=== PATIENT | female | born 1950 | race Caucasian/White ===

== ENCOUNTER 2023-08-13 05:06 | Observation (INO) | payer MEDICARE, OTHER, SELFPAY ==
[2023-08-13] VITALS (9 sets, daily range): BP systolic 104–137; BP diastolic 46–82; PULSE 68–81; BMI 24.3; BMI 23.7
--- NOTE | 2023-08-13 00:22 | ED.GENMED ---
History of Present Illness
<SANDRA Granado - Last Filed: 08/13/23 06:13>
General
Chief Complaint: Chest Pain
Source: patient
Time Seen by Provider: 08/13/23 00:19
Travel History
Have you had any contact with someone who has COVID-19?: No
Do you have any symptoms of coronavirus? Fever > 100 degrees, chills, cough, shortness of breath, sore throat, loss of taste or smell, muscle aches, or headache?: No
History of Present Illness
History of Present Illness:
This is a 73 yo female PMH R breast CA and migraines presenting for L sided chest pain which started at 1700 yesterday evening while she was on a walk. She states the pain has persisted at rest and is worse with deep inspiration. She rates the pain
as sharp 7/10 and radiating to her L thoracic region. She took an excedrin before arriving to the ED. She denies history of chest pain.
She denies nausea, vomiting, diaphoresis, EVANS.
Recent travel history: Recent road trip to [place], no flights
On physical exam, patient in visible discomfort when asked to take a deep breath.
Review of Systems
<SANDRA Granado - Last Filed: 08/13/23 06:13>
Review of Systems
Allergies reviewed?: Yes
Constitutional: Reports no symptoms
EENT: Reports no symptoms
Respiratory: Reports no symptoms
Cardiac: Reports chest pain
ABD/GI: Reports no symptoms
Phy Exam
<SANDRA Granado - Last Filed: 08/13/23 06:13>
General Physical Exam
General Presentation: well appearing
General age: appears stated age
General Skin: warm and dry
Cardiovascular Exam
Cardiovascular Exam: regular rate/rhythm, no edema, no gallop and no murmur
Pulmonary Exam
Pulmonary Exam: lungs clear and no respiratory distress
Neurological Exam
Neurological Exam: alert and oriented x3
Musculoskeletal Exam
Musculoskeletal Exam: full ROM
Scores
<SANDRA Granado - Last Filed: 08/13/23 06:13>
Heart Score for Chest Pain Patients
STEMI patient?: No
History: Slightly or Non-Suspicious
ECG: Normal
Age: >/= 65 years
Risk Factors: 1 or 2 Risk Factors
Troponin: </= Normal Limit
Heart Score for Chest Pain Patients: 3
Heart Score Risk: 2.5% MACE over next 6 weeks
Course
<SANDRA Granado - Last Filed: 08/13/23 06:13>
Orders/Labs/Results
Orders:
Orders
08/12/23 23:59
Cardiac Monitoring- Treatment ONCE
EKG- Treatment ONCE
IV Insert/Care/Rem.- Treatment PRN
Complete Blood Count/With Diff Urgent
Comprehensive Metabolic Panel Urgent
Troponin I Urgent
O2 Therapy [RESP] Urgent
Titrate/Wean O2 to maintain O2 sat greater than (%): 90
Special Instructions: Maintain sats >/=90%
Pulse Ox/spot Check [RESP] Urgent
Quantity: 1
Special Instructions: ON ROOM AIR
08/13/23 00:34
Lipase Urgent
08/13/23 01:35
0.9% Sodium Chloride 500 ml [Nss] 500 ml IV BOLUS
08/13/23 02:07
D-Dimer Urgent
08/13/23 03:50
Ketorolac [Toradol] 15 mg IV NOW STA
08/13/23 03:51
Enoxaparin Sodium [Lovenox] 70 mg SC NOW STA
CXR2 [CR Chest - 2 Views ] Urgent
Comment:
Reason For Exam: Chest Pain
08/13/23 04:00
Flush (0.9% Sodium Chloride) [Flush (Nss)] See Dose Instructions IV PER PROTOCOL
08/13/23 04:08
Admit/Transfer Patient As Directed
Co-Sign Provider:
Level of Care: Observation services
Assign to:: Telemetry
Physician / Group: Lexx
Diagnosis: Pleurisy
Reason for Telemetry: Chest Pain syndromes
Date to Stop Telemetry: 08/15/23
Time to Stop Telemetry: 11:00
08/13/23 04:09
Code Status As Directed
Resuscitation Status: Full Code
08/13/23 04:11
US Periph Venous LOWER Ext Brodie Urgent
Comment:
Reason For Exam: Chest Pain, Rule out DVT
08/13/23 06:06
Troponin I Q6H
Acetaminophen [Tylenol] 650 mg PO Q4HPRN PRN
HYDROmorphone [Dilaudid] 0.5 mg IV Q4HPRN PRN
Ketorolac [Toradol] 10 mg IV Q6HPRN PRN
Ondansetron Injectable [Zofran] 4 mg IV Q6HPRN PRN
Polyethylene Glycol Powder [Miralax] 17 grams PO DAILY PRN
08/13/23 06:06
CRP [C-Reactive Protein] Routine
ESR [Erythrocyte Sed Rate] Routine
VQ Scan [NM Lung Scan Vent/perf ] Routine
Comment:
Reason For Exam: Pleuritic Pain, Elevated D-Dimer
Activity As Directed
Activity Level: Ambulate
With Assistance
EKG with chest pain [ECG as needed] As Directed
ECG as needed for:: Chest Pain
I/O [Intake/ Output] As Directed
Frequency: Per unit guidelines
Orthostatic Vital Signs As Directed
Orthostatic VS Frequency: BID
Vital Signs As Directed
Frequency: Per unit guidelines
Weight As Directed
Frequency: Daily
Oxygen Therapy [O2 Therapy] [RESP] Routine
Titrate/Wean O2 to maintain O2 sat greater than (%): 94
Rx Incentive Spirometry [RESP] Routine
Frequency: q1h while awake
08/13/23 08:00
Pantoprazole [Protonix IV] 40 mg IV DAILY
Paroxetine [Paxil] 20 mg PO DAILY
08/13/23 12:06
Troponin I Q6H
08/13/23 18:06
Troponin I Q6H
08/13/23 22:00
simvastatin 40 mg PO HS
08/14/23 06:00
EKG [Electrocardiogram (*1)] IN AM
Reason for Study: Chest Pain
Regular
At Your Request: Full Participation
Basic Metabolic Panel IN AM
Complete Blood Count/No Diff IN AM
08/15/23 11:00
DC Protocol for Telemetry ONCE
Abnormal Lab Results
08/13/23 08/13/23
00:34 02:07
RBC 3.65 L 10^6/uL
(4.20-5.40)
Hgb 11.7 L g/dL
(12.0-16.0)
Hct 35.4 L %
(37.0-47.0)
MCH 32.1 H pg
(27.0-31.0)
Absolute Monos (auto) 1.2 H 10^3/uL
(0.1-0.6)
Lymphocytes % 17.7 L %
(20.5-51.1)
Monocytes % 12.6 H %
(1.7-9.3)
D-Dimer 0.91 H ug/mlFEU
(0.00-0.50)
BUN 26 H mg/dl
(7-17)
Glucose 116 H mg/dl
(70-99)
08/13/23 00:34
08/13/23 00:34
Vital Signs
Initial and Last Documented VS:
Initial Vital Signs
Temp Pulse Resp BP Pulse Ox
98.2 F 90 18 113/82 94
08/13/23 00:01 08/13/23 00:01 08/13/23 00:01 08/13/23 00:01 08/13/23 00:01
Last Documented Vital Signs
Temp Pulse Resp BP Pulse Ox
98.4 F 75 20 137/52 96
08/13/23 06:00 08/13/23 06:00 08/13/23 06:00 08/13/23 06:00 08/13/23 06:00
<Meño Ortiz, - Last Filed: 08/13/23 03:51>
Orders/Labs/Results
Orders:
Orders
08/12/23 23:59
Cardiac Monitoring- Treatment ONCE
EKG- Treatment ONCE
IV Insert/Care/Rem.- Treatment PRN
Complete Blood Count/With Diff Urgent
Comprehensive Metabolic Panel Urgent
Troponin I Urgent
O2 Therapy [RESP] Urgent
Titrate/Wean O2 to maintain O2 sat greater than (%): 90
Special Instructions: Maintain sats >/=90%
Pulse Ox/spot Check [RESP] Urgent
Quantity: 1
Special Instructions: ON ROOM AIR
08/13/23 00:34
Lipase Urgent
08/13/23 01:35
0.9% Sodium Chloride 500 ml [Nss] 500 ml IV BOLUS
08/13/23 02:07
D-Dimer Urgent
08/13/23 03:50
Ketorolac [Toradol] 15 mg IV NOW STA
08/13/23 03:51
Enoxaparin Sodium [Lovenox] 70 mg SC NOW STA
CXR2 [CR Chest - 2 Views ] Urgent
Comment:
Reason For Exam: Chest Pain
08/13/23 04:00
Flush (0.9% Sodium Chloride) [Flush (Nss)] See Dose Instructions IV PER PROTOCOL
08/13/23 04:08
Admit/Transfer Patient As Directed
Co-Sign Provider:
Level of Care: Observation services
Assign to:: Telemetry
Physician / Group: Lexx
Diagnosis: Pleurisy
Reason for Telemetry: Chest Pain syndromes
Date to Stop Telemetry: 08/15/23
Time to Stop Telemetry: 11:00
08/13/23 04:09
Code Status As Directed
Resuscitation Status: Full Code
08/13/23 04:11
US Periph Venous LOWER Ext Brodie Urgent
Comment:
Reason For Exam: Chest Pain, Rule out DVT
08/13/23 06:06
Troponin I Q6H
Acetaminophen [Tylenol] 650 mg PO Q4HPRN PRN
HYDROmorphone [Dilaudid] 0.5 mg IV Q4HPRN PRN
Ketorolac [Toradol] 10 mg IV Q6HPRN PRN
Ondansetron Injectable [Zofran] 4 mg IV Q6HPRN PRN
Polyethylene Glycol Powder [Miralax] 17 grams PO DAILY PRN
08/13/23 06:06
CRP [C-Reactive Protein] Routine
ESR [Erythrocyte Sed Rate] Routine
VQ Scan [NM Lung Scan Vent/perf ] Routine
Comment:
Reason For Exam: Pleuritic Pain, Elevated D-Dimer
Activity As Directed
Activity Level: Ambulate
With Assistance
EKG with chest pain [ECG as needed] As Directed
ECG as needed for:: Chest Pain
I/O [Intake/ Output] As Directed
Frequency: Per unit guidelines
Orthostatic Vital Signs As Directed
Orthostatic VS Frequency: BID
Vital Signs As Directed
Frequency: Per unit guidelines
Weight As Directed
Frequency: Daily
Oxygen Therapy [O2 Therapy] [RESP] Routine
Titrate/Wean O2 to maintain O2 sat greater than (%): 94
Rx Incentive Spirometry [RESP] Routine
Frequency: q1h while awake
08/13/23 08:00
Pantoprazole [Protonix IV] 40 mg IV DAILY
Paroxetine [Paxil] 20 mg PO DAILY
08/13/23 12:06
Troponin I Q6H
08/13/23 18:06
Troponin I Q6H
08/13/23 22:00
simvastatin 40 mg PO HS
08/14/23 06:00
EKG [Electrocardiogram (*1)] IN AM
Reason for Study: Chest Pain
Regular
At Your Request: Full Participation
Basic Metabolic Panel IN AM
Complete Blood Count/No Diff IN AM
08/15/23 11:00
DC Protocol for Telemetry ONCE
Abnormal Lab Results
08/13/23 08/13/23
00:34 02:07
RBC 3.65 L 10^6/uL
(4.20-5.40)
Hgb 11.7 L g/dL
(12.0-16.0)
Hct 35.4 L %
(37.0-47.0)
MCH 32.1 H pg
(27.0-31.0)
Absolute Monos (auto) 1.2 H 10^3/uL
(0.1-0.6)
Lymphocytes % 17.7 L %
(20.5-51.1)
Monocytes % 12.6 H %
(1.7-9.3)
D-Dimer 0.91 H ug/mlFEU
(0.00-0.50)
BUN 26 H mg/dl
(7-17)
Glucose 116 H mg/dl
(70-99)
08/13/23 00:34
08/13/23 00:34
Vital Signs
Initial and Last Documented VS:
Initial Vital Signs
Temp Pulse Resp BP Pulse Ox
98.2 F 90 18 113/82 94
08/13/23 00:01 08/13/23 00:01 08/13/23 00:01 08/13/23 00:01 08/13/23 00:01
Last Documented Vital Signs
Temp Pulse Resp BP Pulse Ox
98.4 F 75 20 137/52 96
08/13/23 06:00 08/13/23 06:00 08/13/23 06:00 08/13/23 06:00 08/13/23 06:00
<SANDRA Granado - Last Filed: 08/13/23 06:13>
MDM/Problems Addressed
Differential Diagnosis Includes:
Pulmonary embolism
Unstable Angina
MDM/Problems Addressed:
Troponin WNL, D Dimer Elevated.
-Patient is having pleuritic chest pain with an elevated D dimer. She is allergic to IV contrast so will be admitted for V/Q scan
<SANDRA Granado - Last Filed: 08/13/23 06:13>
*Critical Care Note
Total Time (30-74mins, 75-104mins- exclusive of procedures): Not Applicable
ED Attending Note
<SANDRA Granado - Last Filed: 08/13/23 06:13>
-
Portions of this chart may have been created with voice recognition software.� Occasional wrong word or��sound alike� substitutions may have occurred due to the inherent limitations of voice recognition software.
<Meño Ortiz DO - Last Filed: 08/13/23 03:51>
ED Attending Note
Patient seen and examined by attending physician: Yes
I performed the substantive portion of visit, reviewed & personally made and approve the management plan that is documented in note by myself or CECY.: Yes
ED Attending Note:
Pleasant 73-year-old female presents with right-sided chest pain that began suddenly while out on a walk. Patient states that the pain is worsened with deep inspiration. She states that the pain is 7 out of 10 and radiates to her back. Patient
did take Excedrin prior to arrival. Reports no other symptoms. Denies any calf tenderness. Patient was seen in conjunction with the PA student. I have reviewed and agree with the history and treatment plan presented. On my independent physical
exam, patient is awake, alert, and oriented x3 minimal acute distress, except when having deep inspiration. Deep breaths exacerbate his symptoms. No reproducible chest pain. Negative Homans' sign. Skin is warm and dry.
Plan CT of the chest to rule out pulmonary embolus.
Discharge Plan
Departure
Patient Disposition: Admit
Date of Disposition: 08/13/23
Time of Disposition: 03:50
Admit to: Med/Surg
Presentation/result/management discussed w/ accepting MD/DO: Hospitalist
Discharge Problem:
Chest pain, SOB (shortness of breath), D-dimer, elevated, History of breast cancer
Interventions
Interventions:
*Risk Screen - Suicide Last Done: 08/13/23 00:01
*General Assessment Last Done: 08/13/23 00:01
*Neglect/Abuse Screening Last Done: 08/13/23 00:01
ED- Fall Risk Assessment Last Done: 08/13/23 00:37
*ED COVID-19 Vaccine History Last Done: 08/13/23 00:37
*Nursing Disposition Last Done: 08/13/23 05:45
ED- Cardiac Assessment Last Done: 08/13/23 00:37
Discharge Date and Time
Discharge Date/Time: 08/13/23 05:45
[2023-08-13 00:46] LABS: % Basophils 0.5 % (0-2); % Eosinophils 1.1 % (0-6); % Immature Granulocytes 0.3 % (0-0.5); % Lymphocytes 17.7 % (20.5-51.1); % Monocytes 12.6 % (1.7-9.3); % Neutrophils 67.8 % (42.2-75.2); Absolute Basophils 0.1 10^3/uL (0-0.2); Absolute Eosinophils 0.1 10^3/uL (0-0.7); Absolute Lymphocytes 1.6 10^3/uL (1.2-3.4); Absolute Monocytes 1.2 10^3/uL (0.1-0.6); Absolute Neutrophils 6.2 10^3/uL (1.4-6.5); Hematocrit 35.4 % (37.0-47.0); Hemoglobin 11.7 g/dL (12.0-16.0); Mean Corp Hgb Conc. 33.1 g/dL (33.0-37.0); Mean Corpuscular Hgb 32.1 pg (27.0-31.0); Mean Platelet Volume 10.3 fL (7.4-10.4); Nucleated Red Blood Cells % 0 %; Platelet Count 188 10^3/uL (130-400); Red Blood Cell Count 3.65 10^6/uL (4.20-5.40); White Blood Cell Count 9.1 10^3/uL (4.8-10.8)
[2023-08-13 01:07] LABS: Troponin I < 0.012 ng/ml
[2023-08-13 01:17] LABS: ALT (SGPT) 28 U/L (0-35); AST (SGOT) 36 U/L (14-36); Albumin 4.6 g/dl (3.5-5.0); Alkaline Phosphatase 102 U/L (38-126); Blood Urea Nitrogen 26 mg/dl (7-17); Calcium 9.7 mg/dl (8.4-10.2); Carbon Dioxide 30 mmol/L (22-30); Chloride 100 mmol/L (98-107); Estimated Creatinine Clearance 48 ml/min; Glucose 116 mg/dl (70-99); Lipase 71 U/L (23-300); Sodium 136 mmol/L (135-145); Total Bilirubin 0.7 mg/dl (0.2-1.3); Total Protein 7.2 g/dl (6.3-8.2); eGFR 59.12
[2023-08-13] MEDS: NSS 500 IV (01:38)
[2023-08-13 02:30] LABS: D-Dimer 0.91 ug/mlFEU (0.00-0.50)
--- NOTE | 2023-08-13 03:54 | HPS.HSE ---
Family Physician
-
Family Physician: SEBASTIAN Salinas
Chief Complaint
-
Chest Pain
History of Present Illness
Patient is a 73y F with PMH significant for breast cancer who presents to ED complaining of left sided chest pain. Patient states that she has been feeling very well recently. She denies any fevers, chills, cough, GI or complaints. She went
for her usual walk this afternoon, but felt somewhat short of breath and so cut her walk short. Upon return home, she noted development of sudden, sharp pain in the L lower chest. Pain located beneath the breast / over the ribs. Occasional
radiation into the L flank area. Pain is worse with breathing, movement, etc. Pain was quite severe and seemed to steadily increase and patient was brought to the ED for further evaluation.
Patient denies any prior history of similar symptoms. No recent sick contacts.
She did recently drive to [place] and back. No other travel. No prior history of DVT / PE.
In the ED, patient is in evident discomfort.
Medical History
Past Medical History
Past Medical History: Reports Other
Additional Past Medical History:
Right Breast Cancer
Anxiety / Depression
Dyslipidemia
Past Surgical History: Reports Other
Additional Past Surgical History:
Right Mastectomy
x 2
RLE Vein Stripping
Social History
Tobacco: Former Smoker (Quit smoking 15 years ago. > 40 pack years total use.)
Alcohol: Daily (1 glass wine daily.)
Drug: None
Personal:
Living: With Family
Family History
Family History: Other (Father: CAD, Seizures Mother: CVA MGM: Breast Cancer)
Allergies / Home Medications
Allergies reflects when Allergies were last updated in [facility].
Home Medications with original date entered in [facility]
Allergy/Medication List:
Allergies
Allergy/AdvReac Type Severity Reaction Status Date / Time
clams Allergy Anaphylaxis Verified 08/13/23 00:13
Sulfa (Sulfonamide Allergy Anaphylaxis Verified 08/13/23 00:18
Antibiotics)
iv dye Allergy Anaphylaxis Uncoded 08/13/23 00:18
Home Medications
paroxetine HCl 20 mg tablet 20 mg PO DAILY 08/13/23
simvastatin 40 mg tablet 40 mg PO HS 08/13/23
Review of Systems
-
History Source: Patient
A 12 point ROS was completed and negative except as noted: Yes
Constitutional: Denies Fever or Chills
EENT: Denies Sore Throat
Respiratory: Reports Trouble Breathing; Denies Cough or Hemoptysis
Cardiac: Reports Chest Pain; Denies Diaphoresis, Palpitations or Syncope
Abdomen/GI: Denies Abdominal Pain, Nausea, Vomiting, Diarrhea, Bloody Stools or Black Stools
: Denies Dysuria or Frequency
Musculoskeletal: Denies Edema
Neurological: Denies Dizzy or Headache
Psych: Denies Depression or Anxiety
Physical Exam
Vital Signs
Vital Signs
Temp Pulse Resp BP Pulse Ox
98.2 F 82 26 123/59 95
08/13/23 00:01 08/13/23 02:30 08/13/23 02:30 08/13/23 01:00 08/13/23 02:30
Physical Exam
General: Other (73y F in moderate distress due to pain.)
HEENT: Moist mucous membranes and PERRLA
Respiratory: Other (Decreased BS at bases - mostly due to diminished effort due to pain. No W/R/R.)
Cardiac: S1/S2 and Regular Rhythm; No Murmur
GI: Soft, Non Tender, Non Distended and Normal Bowel Sounds
Musculoskeletal: No Clubbing, No Cyanosis and No Edema
Neuro: AO x 3
Laboratory Results
-
08/13/23 00:34
08/13/23 00:34
Laboratory Results
Total Bilirubin 0.7 mg/dl (0.2-1.3) 08/13/23 00:34
AST 36 U/L (14-36) 08/13/23 00:34
ALT 28 U/L (0-35) 08/13/23 00:34
Alkaline Phosphatase 102 U/L (38-126) 08/13/23 00:34
Troponin I < 0.012 ng/ml 08/13/23 00:34
Lipase 71 U/L (23-300) 08/13/23 00:34
Impression/Plan
-
A/P: Patient is a 73y F with PMH significant for breast cancer s/p treatment who presents to ED complaining of L chest pain.
Pleuritic Pain
SOB
- Admit of further evaluation and treatment.
- Patient with evident pleuritic chest pain and in significant discomfort in the ED.
- Initial evaluation for coronary ischemia is unremarkable with normal EKG and undetectable troponin.
- Differential includes PE / pulmonary infarct, viral or inflammatory pleurisy.
- No symptoms to suggest infectious etiology.
- No abdominal tenderness to suggest LUQ / splenic etiology.
- D-Dimer is modestly elevated and patient with h/o breast CA.
- Was on hormonal agent (Aromasin) but has been off of this for 1 year now.
- Unable to get CTA due to significant IV dye allergy.
- Will give Lovenox x 1 therapeutic dose now. V/Q scan in the AM. Check LE dopplers.
- Pain control.
- Check CXR.
- Further evaluation depending on results of above studies, clinical course, etc.
Dyslipidemia
- Stable. Continue statin.
Anxiety
- Stable. Continue paroxetine.
DVT Prophylaxis: On therapeutic Lovenox for now.
Code Status: Full
[2023-08-13] MEDS: TORADOL 15 MG IV (04:13)
[2023-08-13] MEDS: LOVENOX 70 MG SC (04:14)
[2023-08-13] MEDS: FLUSH (NSS) 1 FLUSH IV (04:14)
--- NOTE | 2023-08-13 05:48 | PTCARENOTE ---
Pt received from ED to rm 430. Pt oriented to room and call mir.
[2023-08-13 07:09] LABS: Troponin I < 0.012 ng/ml
[2023-08-13] MEDS: PAXIL 20 MG PO (08:09)
[2023-08-13] MEDS: PROTONIX IV 40 MG IV (08:09)
[2023-08-13] MEDS: NSS (PRESERVATIVE FREE) 10 ML IV (08:09)
[2023-08-13 08:17] LABS: Erythrocyte Sed Rate 13 mm/hour (0-20)
[2023-08-13 13:02] LABS: Troponin I < 0.012 ng/ml
--- NOTE | 2023-08-13 14:30 | CM ---
Patient was admitted under OBS, [facility] letter completed and placed on chart. Patient lives with spouse in a multilevel home, patient is independent with adl's and ambulation, no dme. Patient has a prescription plan and patient uses [facility] pharmacy.
SUSTAINABILITY EXECUTIVE DIRECTOR: Bree Tsai
Plan; Home with spouse when stable, no needs.
--- NOTE | 2023-08-13 17:28 | W.PN.HOSP.TC ---
Today's Communication/Plan
-
All discussed with the patient and the family
Discussed with the nurse and
Assessment / Plan
Assessment / Plan
Physical exam:
General: Awake, alert and oriented x3, not in distress and holds appropriate conversation.
HEENT: No active discharge, ecchymosis or bruising, moist lips, tongue and mucous membrane.
Eyes: No discharge or red conjunctiva, no nystagmus, pupils are reactive and equal
Neck:Supple, no JVD no bruit no goiter.
Respiratory: Normal AP contour and diameter, normal chest wall movement, normal respiratory effort, no respiratory distress,
Lungs: Good air entry bilaterally, no wheezing or rhonchi, no rales or crackles
Heart: S1, S2 regular, normal rate, no added sound.
Gastrointestinal: Positive bowel sounds, soft, nontender, no guarding or rigidity or organomegaly
Musculoskeletal: , no chest wall abnormality or tenderness. All joints and extremities have good range of motion, no muscle tenderness or any joint swelling or tenderness.
Extremities: No pitting edema, good peripheral pulses, good range of motion
Skin: Warm and dry, no ulceration, normal color.
Neurological: Awake, alert and oriented x3, speech clear and comprehensive, good muscle tone, normal sensory and motor function
Psychiatric: Normal mood, normal thought and judgment, normal affect,
Assessment and plan:A/P: Patient is a 73y F with PMH significant for breast cancer s/p treatment who presents to ED complaining of L chest pain.
Pleuritic chest pain
SOB
-VQ scan and lower extremity ultrasound was negative for PE In nature responded to Toradol, positive family history of the cardiac disease and meant dyslipidemia and former smoker, coronary artery disease may need to be consideration about a cardiac
workup and she like to be seen by cardiology.
Cardiology consulted and they do not think this is cardiac but they want to get an echo tomorrow prior to discharge.
Close monitor.
Dyslipidemia
- Stable. Continue statin.
Anxiety
- Stable. Continue paroxetine.
DVT Prophylaxis: On therapeutic Lovenox for now.
Code Status: Full
Anticipated Discharge: Within 24 hours
Subjective/Interval History
-
Date of Service: August 13, 2023
Seen and examined, awake and alert, family member at the bedside and was okay to talk to her and for the family member, feels chest pain is better now is more pressure in the central located still producible with taking a deep breath and cough, VQ
scan and lower extremity ultrasound negative for DVT, she likes to be seen by cardiology prior to discharge.
Objective Data
-
Vital Signs:
Vital Signs
Temp Pulse Resp BP Pulse Ox
98.5 F 69 14 125/57 95
08/13/23 16:00 08/13/23 16:00 08/13/23 16:00 08/13/23 16:00 08/13/23 16:00
Review of Systems
-
All other systems: Reviewed and negative
[2023-08-13 18:46] LABS: Troponin I < 0.012 ng/ml
[2023-08-13] MEDS: LIPITOR 20 MG PO (20:01)
--- NOTE | 2023-08-13 21:59 | CON.CAR ---
Consultation
Consultation Request
Date/Time Consultation Requested: 08/13/23 15:00
Date/Time Consultation Performed: 08/13/23 15 : 30
Requesting Provider: Russel
Performing Provider: Diane
Reason for Consultation: chest pain
Medical History
-
Chief Complaint: chest pain, shortness of breath
History of Present Illness:
Cait has a history of breast cancer and migraines. She presents with chest pain and shortness of breath. The pain was worse with taking a deep breath. Pain was described as sharp. It lasted for several hours and was on the relieved with Toradol.
She also noted shortness of breath while walking. She undergone a normal workup including low probability VQ scan with normal troponins and normal ECG.
Past Medical History
Past Medical History: Hypercholesterolemia and Other ( History of breast cancer, migraines, anxiety/depression)
Past Surgical History: Other ( right mastectomy, x2, right lower extremity vein stripping)
Social History
Tobacco: Former Smoker ( quit 15 years ago with greater than 40 pack years total use)
Alcohol: Occasional
Drug: None
Personal:
Living: With Family
Employment: Retired
Family History
Family History: Other ( father had CAD and seizures, mother with CVA)
Allergies / Home Medications
Allergy/AdvReac Type Severity Reaction Status Date / Time
clams Allergy Anaphylaxis Verified 08/13/23 00:13
Sulfa (Sulfonamide Allergy Anaphylaxis Verified 08/13/23 00:18
Antibiotics)
iv dye Allergy Anaphylaxis Uncoded 08/13/23 00:18
�Medication �Instructions �Recorded �Confirmed �Type
calcium carbonate (Calcium 600) 1,200 mg PO DAILY Supplement 08/13/23 08/13/23 History
cholecalciferol (vitamin D3) 50 50 mcg PO DAILY Supplement 08/13/23 08/13/23 History
mcg (2,000 unit) tablet (Vitamin
D3)
multivitamin with minerals-folic 1 tab PO DAILY Supplement 08/13/23 08/13/23 History
acid 80 mcg chewable tablet
(Centrum Adult 50 Plus)
paroxetine HCl 20 mg tablet 20 mg PO DAILY depression/anxiety 08/13/23 08/13/23 History
simvastatin 40 mg tablet 40 mg PO HS High Cholesterol 08/13/23 08/13/23 History
Review of Systems
-
History Source: Patient
All other systems: Negative unless noted
Constitutional: No Symptoms
EENT: No Symptoms
Respiratory: Trouble Breathing
Cardiac: Chest Pain
Abdomen/GI: No Symptoms
: No Symptoms
Musculoskeletal: No Symptoms
Skin: No Symptoms
Neurological: No Symptoms
Endocrine: No Symptoms
Hematologic/Lymphatic: No Symptoms
Physical Exam
Vital Signs
Temp Pulse Resp BP Pulse Ox
98.1 F 69 18 104/46 97
08/13/23 19:50 08/13/23 19:50 08/13/23 19:50 08/13/23 19:50 08/13/23 19:50
Lab Results
08/13/23 00:34
08/13/23 00:34
Troponin I < 0.012 ng/ml 08/13/23 18:17
General: Well developed, well nourished in NAD.
Neck: Supple, no JVD, HJR, carotids +2 B/L, no bruits bilaterally.
Heart: Non displaced PMI, RRR, no murmurs, No S3, S4, no rubs.
Lungs: Clear to auscultation bilaterally, no wheeze, rhonchi, rubs bilaterally,
normal expiratory phase.
Abdomen: Normal bowel sounds, soft, non-tender, non-distended.
Extremities: No clubbing, cyanosis or edema bilaterally.
Neuro: Grossly nonfocal, awake, alert and oriented x3.
Impression / Plan
-
impression:
Chest pain
Shortness of breath
History of breast cancer
History of hyperglycemia
Anxiety/depression
Plan:
She presents with chest discomfort which was prolonged and relieved with Toradol. She relates it to lifting a heavy object recently. VQ scan was low probability. They be musculoskeletal. Doubt pericarditis or pleurisy.
Troponins have been negative and ECG is normal.
Check echocardiogram to exclude cardiac etiology as well as pericardial effusion
If echo normal can be discharged with plans for outpatient stress testing.
Data Reviewed
-
EKG: Tracing Personally Visualized and interpreted
Radiology: Report Reviewed by me
Medical Tests (Nuc Med, Echo etc): Report Reviewed by me
Labs: Labs Reviewed by me
Old Records: Reviewed
[2023-08-14 03:50] VITALS: BP 102/66
[2023-08-14 06:00] VITALS: BMI 23.9
[2023-08-14 07:10] LABS: Hematocrit 35.1 % (37.0-47.0); Hemoglobin 11.7 g/dL (12.0-16.0); Mean Corp Hgb Conc. 33.3 g/dL (33.0-37.0); Mean Corpuscular Hgb 32.3 pg (27.0-31.0); Platelet Count 184 10^3/uL (130-400); Red Blood Cell Count 3.62 10^6/uL (4.20-5.40); Red Cell Dist. Width 12.9 % (11.5-14.5); White Blood Cell Count 5.2 10^3/uL (4.8-10.8)
[2023-08-14 07:33] LABS: Blood Urea Nitrogen 17 mg/dl (7-17); Carbon Dioxide 27 mmol/L (22-30); Chloride 107 mmol/L (98-107); Estimated Creatinine Clearance 53 ml/min; Glucose 106 mg/dl (70-99); Potassium 4.5 mmol/L (3.5-5.1); Sodium 139 mmol/L (135-145); eGFR > 60.00
[2023-08-14 07:35] VITALS: BP 102/69
[2023-08-14] MEDS: NSS (PRESERVATIVE FREE) 10 ML IV (07:55)
[2023-08-14] MEDS: PROTONIX IV 40 MG IV (07:55)
[2023-08-14 07:56] VITALS: BP 102/69; BP 127/67; BP 131/76; PULSE 66; PULSE 68; PULSE 76
[2023-08-14] MEDS: PAXIL 20 MG PO (07:56)
[2023-08-14] MEDS: LOVENOX 40 MG SC (07:56)
[2023-08-14 11:15] VITALS: BP 120/68
--- NOTE | 2023-08-14 12:47 | W.PN.CARDCBS ---
Today's Communication / Plan
-
Outpatient cardiac follow-up to be arranged
Impression / Plan
-
impression:
Atypical chest pain, possibly musculoskeletal or pleuritic
History of breast cancer
History of hyperglycemia
Anxiety/depression
Plan:
Cait presents with sharp/severe chest discomfort which was prolonged and relieved with Toradol after she moved a heavy pot on her front porch
-Troponins negative. EKG nonischemic.
-D-dimer elevated 0.91; VQ scan and lower extremity Doppler negative
-Chest x-ray reviewed: Parenchymal stranding left greater than right. Radiology read as atelectasis versus pneumonia
-ESR normal. C-reactive protein elevated at 30. No elevated white blood cell count or fever.
-2D echocardiogram with no pericardial effusion and normal LV size and systolic function. She has a previous history of mitral valve prolapse which was not appreciated on this study. She does have moderate tricuspid regurgitation and slightly
enlarged right ventricle with overall preserved RV systolic function. Findings discussed with patient as well as plan for periodic surveillance monitoring
-She has had no further chest pain or respiratory complaints since given the Toradol
-Will arrange for outpatient cardiac follow-up
-Will sign off, recall if needed
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
Subjective
Date of Service: August 14, 2023
Seen and examined. Patient is feeling well with no recurrent presenting symptoms
Objective
Labs:
08/14/23 06:02
08/14/23 06:02
Labs
Hgb 11.7 g/dL (12.0-16.0) L 08/14/23 06:02
Hct 35.1 % (37.0-47.0) L 08/14/23 06:02
Plt Count 184 10^3/uL (130-400) 08/14/23 06:02
Sodium 139 mmol/L (135-145) 08/14/23 06:02
Potassium 4.5 mmol/L (3.5-5.1) 08/14/23 06:02
BUN 17 mg/dl (7-17) 08/14/23 06:02
Creatinine 0.9 mg/dL (0.6-1.0) 08/14/23 06:02
Glucose 106 mg/dl (70-99) H 08/14/23 06:02
Troponins
08/13/23 08/13/23 08/13/23
00:34 06:25 12:21
Troponin I < 0.012 < 0.012 < 0.012
08/13/23
18:17
Troponin I < 0.012
Vital Signs and I&O:
Vital Signs
Temp Pulse Resp BP Pulse Ox
98.2 F 68 17 120/68 96
08/14/23 11:15 08/14/23 11:15 08/14/23 11:15 08/14/23 11:15 08/14/23 11:15
Vital Signs
Temp Pulse Resp BP Pulse Ox
98.2 F 68 17 120/68 96
08/14/23 11:15 08/14/23 11:15 08/14/23 11:15 08/14/23 11:15 08/14/23 11:15
Intake & Output
08/12/23 08/13/23 08/14/23 08/15/23
06:59 06:59 06:59 06:59
Intake Total 1440 / 1440
Balance 1440 / 1440
Physical Exam
Physical Exam
General: No acute distress, AAOX3
Neck: Negative JVD
Heart: Regular, Negative S3 positive S1/S2, Negative S4, 1/6 SM
Lungs: CTA b/l, negative wheezes/rales/rhonchi
Abd: Positive BS, NT/ND, neg rebound/rigidity/guarding
Ext: Negative cyanosis/clubbing/edema
Neuro: nonfocal
--- NOTE | 2023-08-14 13:03 | CM ---
Per [facility] [employer] [facility] note, they 'will arrange for outpatient cardiac follow-up'
Plan: discharge to home; no needs; has a ride home
--- NOTE | 2023-08-14 13:29 | W.DS.TRANS ---
DC Summary - Rn Progressive Care Unit
-
Discharge Instructions:
Discharge Diagnosis/Procedures Chest pain
Diet Low Fat,Low Cholesterol
Instructions:
Stand-Alone Forms:
Changes to Home Medications: No
Discharge Medications:
DC Medications w/original date entered in [employer]
calcium carbonate (Calcium 600) 1,200 mg PO DAILY Supplement 08/13/23
cholecalciferol (vitamin D3) 50 mcg (2,000 unit) tablet (Vitamin D3) 50 mcg PO DAILY Supplement 08/13/23
multivitamin with minerals-folic acid 80 mcg chewable tablet (Centrum Adult 50 Plus) 1 tab PO DAILY Supplement 08/13/23
paroxetine HCl 20 mg tablet 20 mg PO DAILY depression/anxiety 08/13/23
simvastatin 40 mg tablet 40 mg PO HS High Cholesterol 08/13/23
Home Medication Changes
Pending Results: No
Additional Pending Results:
Physical exam:
General: Awake, alert and oriented x3, not in distress and holds appropriate conversation.
HEENT: No active discharge, ecchymosis or bruising, moist lips, tongue and mucous membrane.
Eyes: No discharge or red conjunctiva, no nystagmus, pupils are reactive and equal
Neck:Supple, no JVD no bruit no goiter.
Respiratory: Normal AP contour and diameter, normal chest wall movement, normal respiratory effort, no respiratory distress,
Lungs: Good air entry bilaterally, no wheezing or rhonchi, no rales or crackles
Heart: S1, S2 regular, normal rate, no added sound.
Gastrointestinal: Positive bowel sounds, soft, nontender, no guarding or rigidity or organomegaly
Musculoskeletal: , no chest wall abnormality or tenderness. All joints and extremities have good range of motion, no muscle tenderness or any joint swelling or tenderness.
Extremities: No pitting edema, good peripheral pulses, good range of motion
Skin: Warm and dry, no ulceration, normal color.
Neurological: Awake, alert and oriented x3, speech clear and comprehensive, good muscle tone, normal sensory and motor function
Psychiatric: Normal mood, normal thought and judgment, normal affect,
Condition on discharge: Awake, alert and oriented x3, answer question properly, able to make own decision and take care of activities of daily living, speech clear and comprehensive, continent of the bowel and bladder, ambulate without kitchen assistant,
goes home where lives with the family independently.
--- NOTE | 2023-08-14 13:42 | W.DCSUMMARY ---
Discharge Summary
Discharge Data
Date of Admission: 08/13/23
Date of Discharge: 08/14/23
-
Pending Results: No
Hospital Course
Discharging Physician : Dr. Snow Goode
Disposition :
Primary care physician :
Principal Discharge diagnosis :
1. Chest pain, likely musculoskeletal versus pleurisy, Resolved
2. Moderate tricuspid
� Trace mitral regurgitation
3. Dyslipidemia
4. Anxiety
Chronic Discharge diagnosis :
History of present illness:
Patient is a 73y F with PMH significant for breast cancer who presents to ED complaining of left sided chest pain. Patient states that she has been feeling very well recently. She denies any fevers, chills, cough, GI or complaints. She went
for her usual walk this afternoon, but felt somewhat short of breath and so cut her walk short. Upon return home, she noted development of sudden, sharp pain in the L lower chest. Pain located beneath the breast / over the ribs. Occasional
radiation into the L flank area. Pain is worse with breathing, movement, etc. Pain was quite severe and seemed to steadily increase and patient was brought to the ED for further evaluation.
Patient denies any prior history of similar symptoms. No recent sick contacts.
She did recently drive to [place] and back. No other travel. No prior history of DVT / PE.
In the ED, patient is in evident discomfort.
Hospital Course :
So patient admitted complaining of the chest pain centrally located, reproducible with taking a deep breath and cough and palpation, eventually improved but the pain and become a pressure sensation, given cardiac enzyme and EKG showed no acute
abnormality.
D-dimer elevated and she manage allergy to IV contrast therefore VQ scan and lower extremity ultrasound of all negative, patient wanted to see cardiology, seen by cardiology and echocardiography done showed some moderate tricuspid regurgitation
otherwise no any other acute abnormality. Pain completely resolved, had no any other symptoms or complaint and discussed with cardio and was okay from the point of view for discharge and have outpatient follow-up for further workup as an outpatient.
Patient's home medication continued and stable and asymptomatic on discharge.
DC Medications w/original date entered in [employer]
calcium carbonate (Calcium 600) 1,200 mg PO DAILY Supplement 08/13/23
cholecalciferol (vitamin D3) 50 mcg (2,000 unit) tablet (Vitamin D3) 50 mcg PO DAILY Supplement 08/13/23
multivitamin with minerals-folic acid 80 mcg chewable tablet (Centrum Adult 50 Plus) 1 tab PO DAILY Supplement 08/13/23
paroxetine HCl 20 mg tablet 20 mg PO DAILY depression/anxiety 08/13/23
simvastatin 40 mg tablet 40 mg PO HS High Cholesterol 08/13/23
Home Medication Changes
Pending Results: No
Additional Pending Results:
Physical exam:
General: Awake, alert and oriented x3, not in distress and holds appropriate conversation.
HEENT: No active discharge, ecchymosis or bruising, moist lips, tongue and mucous membrane.
Eyes: No discharge or red conjunctiva, no nystagmus, pupils are reactive and equal
Neck:Supple, no JVD no bruit no goiter.
Respiratory: Normal AP contour and diameter, normal chest wall movement, normal respiratory effort, no respiratory distress,
Lungs: Good air entry bilaterally, no wheezing or rhonchi, no rales or crackles
Heart: S1, S2 regular, normal rate, no added sound.
Gastrointestinal: Positive bowel sounds, soft, nontender, no guarding or rigidity or organomegaly
Musculoskeletal: , no chest wall abnormality or tenderness. All joints and extremities have good range of motion, no muscle tenderness or any joint swelling or tenderness.
Extremities: No pitting edema, good peripheral pulses, good range of motion
Skin: Warm and dry, no ulceration, normal color.
Neurological: Awake, alert and oriented x3, speech clear and comprehensive, good muscle tone, normal sensory and motor function
Psychiatric: Normal mood, normal thought and judgment, normal affect,
Condition on discharge: Awake, alert and oriented x3, answer question properly, able to make own decision and take care of activities of daily living, speech clear and comprehensive, continent of the bowel and bladder, ambulate without doctor assistant,
goes home where lives with the family independently.
Discharge Plan
-
Patient Disposition: Home (Routine Discharge)
Discharge Diagnosis/Procedures: Chest pain
Condition: Good
Diet: Low Fat and Low Cholesterol
Activity Restrictions/Additional Instructions:
-Been admitted for chest pain most likely from muscles of the pleura, resolved
Meantime need outpatient follow-up with cardiology to further assessment as an outpatient as discussed with the patient and cardiology
Referrals:
Tejas Contreras MD [Active] - in two to three weeks
Bree Tsai CRNP [Family Provider] -
Prescriptions:
Continued
simvastatin 40 mg Tablet
40 mg PO HS
paroxetine HCl 20 mg Tablet
20 mg PO DAILY
calcium carbonate [Calcium 600] 600 mg calcium (1,500 mg) Tablet
1,200 mg PO DAILY
cholecalciferol (vitamin D3) [Vitamin D3] 50 mcg (2,000 unit) Tablet
50 mcg PO DAILY
Centrum Adult 50 Plus 80 mcg Tablet,Chewable
1 tab PO DAILY
Discharge Orders:
Discharge Patient (As Directed); Ordered 08/14/23
Ordered By: Snow Goode
Discharge Date and Time
Print Language: KHMER
[2023-08-14 14:25] VITALS: BP 130/69
== END 2023-08-14 16:51 | disposition home or self-care (01) ==
LOC: 4 WEST ACU 05:06
PROVIDERS: ADMITTING PHYSICIAN Hospitalist; ATTENDING PHYSICIAN Internal Medicine; CONSULT PHYSICIAN Internal Medicine Cardiovascular Disease; EMERGENCY PHYSICIAN Student in an Organized Health Care Education/Training Program; FAMILY PHYSICIAN Nurse Practitioner Adult Health
DX: R07.89 Other chest pain (principal); M54.6 Pain in thoracic spine; R79.89 Other specified abnormal findings of blood chemistry; I07.1 Rheumatic tricuspid insufficiency; R06.02 Shortness of breath; F41.9 Anxiety disorder, unspecified; E78.00 Pure hypercholesterolemia, unspecified; G43.909 Migraine, unspecified, not intractable, without status migrainosus; M79.89 Other specified soft tissue disorders; M79.604 Pain in right leg; M79.605 Pain in left leg; R60.0 Localized edema; J98.11 Atelectasis; R79.82 Elevated C-reactive protein (CRP); F32.A Depression, unspecified; Z87.891 Personal history of nicotine dependence; Z80.3 Family history of malignant neoplasm of breast; Z82.49 Family history of ischemic heart disease and other diseases of the circulatory system; Z82.3 Family history of stroke; Z88.2 Allergy status to sulfonamides; Z91.013 Allergy to seafood; Z91.041 Radiographic dye allergy status; Z85.3 Personal history of malignant neoplasm of breast
CPT/HCPCS: 71046; 78582; 80048; 80053; 83690; 84484; 85025; 85027; 85379; 85652; 86140; 93005; 93306; 93970; 96360; 99285; A9540; A9567; G0378

== ENCOUNTER 2024-11-10 06:20 | Day surgery (SDC) | payer MEDICARE, OTHER, SELFPAY | END 2024-11-10 11:37 | disposition home or self-care (01) | LOC: GI 06:20 | PROVIDERS: ATTENDING PHYSICIAN Internal Medicine Gastroenterology | DX: Z12.11 Encounter for screening for malignant neoplasm of colon (principal); D12.0 Benign neoplasm of cecum; D12.2 Benign neoplasm of ascending colon; D12.3 Benign neoplasm of transverse colon; K57.30 Diverticulosis of large intestine without perforation or abscess without bleeding; K62.1 Rectal polyp; K56.2 Volvulus; Q43.8 Other specified congenital malformations of intestine; K64.9 Unspecified hemorrhoids | CPT/HCPCS: 45385; 45380; 88305 ==